=== PATIENT | female | born 1980 | race Caucasian/White ===

== ENCOUNTER 2017-03-31 10:25 | Emergency (ER) | payer MEDICAID | END 2017-03-31 12:05 | disposition home or self-care (01) | LOC: D.ER 10:25 | DX: K02.9 Dental caries, unspecified (principal); K08.89 Other specified disorders of teeth and supporting structures; F41.9 Anxiety disorder, unspecified; G47.00 Insomnia, unspecified; F43.10 Post-traumatic stress disorder, unspecified; F17.200 Nicotine dependence, unspecified, uncomplicated ==

== ENCOUNTER 2017-11-30 08:59 | Emergency (ER) | payer MEDICAID | END 2017-11-30 10:06 | disposition home or self-care (01) | LOC: D.ER 08:59 | DX: J20.9 Acute bronchitis, unspecified (principal); F17.200 Nicotine dependence, unspecified, uncomplicated ==